=== PATIENT | female | born 1990 | race Caucasian/White ===

== ENCOUNTER → 2017-11-29 | Outpatient (CLI) | payer OTHER ==
[~2017-11-29] MED LIST: BUTACAP36 PO; ETON1IMP2; HYDR-3983 PO; HYDR1CAP85 PO; LAMO25TA PO; LORA-741 PO; SUMA25TA PO
--- NOTE | 2017-11-29 13:37 | DIAGNOSTIC IMAGING REPORT ---
RIGHT AXILLARY ULTRASOUND CLINICAL HISTORY: Pain in right axilla. COMPARISON STUDY: No previous studies for comparison. FINDINGS: Targeted sonography of the right axilla demonstrated no enlarged lymph nodes, masses or fluid collections. There was no sonographic abnormality within the right axilla. IMPRESSION: No sonographic abnormality within the right axilla. Electronically signed by: Yassine Walls M.D. 11/29/2017 1:35 PM Dictated Date/Time: 11/29/2017 1:35 PM
== END | disposition home or self-care (01) ==
LOC: C.ULTR 12:37
PROVIDERS: ATTEND Obstetrics & Gynecology
DX: M79.621 Pain in right upper arm (principal)